=== PATIENT | male | born 1955 | race Caucasian/White ===

== ENCOUNTER 2023-05-26 13:48 | Emergency (ER) | payer MEDICARE, OTHER ==
[2023-05-26 14:05] VITALS: BP 132/76; PULSE 71; RESP 19; TEMP 98.5; O2SAT 97
--- NOTE | 2023-05-26 14:23 | ERPHSYRPT ---
- History of Present Illness Time Seen by Provider: 05/26/23 14:04 Source: patient Exam Limitations: no limitations Patient Subjective Stated Complaint: C/O neck pain. States he has spinal stenosis and sometimes it "flares up." Patient indicates he was moving around a basketball goal at [employer] and thinks he may have strained something. Triage Nursing Assessment: Patient ambulated back to ER. He is alert and oriented. Inability to move neck much noted. Skin tone normal. No SOB. Physician History: 67-year-old male with history of spinal stenosis, with chronic neck and lower back pain presented in the ER with increasing pain in the neck and shoulder area after he pushed something 3 days ago. Patient reports pain radiating to the shoulders without any numbness or weakness but does have peripheral neuropathy which is not any worse than usual. No weakness in lower extremities or numbness in the perineal area/saddle anesthesia. Pain is exacerbated with movements of the neck, has taken some leftover Seibert but no relief. Reports having similar symptoms in the past where neck pain gets exacerbated and need steroid injection. Denies any direct trauma to the neck. No chest pain palpitations or shortness of breath. Allergies/Adverse Reactions: simvastatin [From Zocor] Adverse Reaction (Intermediate, Verified 05/26/23 14:05) Muscle Aches Home Medications: Metformin HCl 500 mg [Glucophage 500 MG] 2 tab PO BID 05/26/23 [History] Pravastatin Sodium 1 tab PO HS 05/26/23 [History] Pregabalin [Lyrica] 1 cap PO BID 05/26/23 [History] Hx Tetanus, Diphtheria Vaccination/Date Given: Yes Hx Influenza Vaccination/Date Given: Yes Hx Pneumococcal Vaccination/Date Given: Yes Immunizations Up to Date: Yes Travel Risk - International Travel Have you traveled outside of the country in past 3 weeks: No - Coronavirus Screening Are you exhibiting any of the following symptoms?: No Close contact with a COVID-19 positive Pt in past 14-21 Days: No - Vaccine Status Have you recieved a Covid-19 vaccination: Yes Vending Machine Technician: Unknown - Vaccination Dates Dates if Unknown: ? - Review of Systems Constitutional: No Symptoms Eyes: No Symptoms Ears, Nose, & Throat: No Symptoms Respiratory: No Symptoms Cardiac: No Symptoms Abdominal/Gastrointestinal: No Symptoms Genitourinary Symptoms: No Symptoms Musculoskeletal: Arthralgias, Back Pain, Neck Pain Skin: No Symptoms Neurological: No Symptoms Psychological: No Symptoms - Past Medical History Pertinent Past Medical History: Yes Neurological History: Peripheral Neuropathy Cardiac History: Hypertension Respiratory History: COPD Endocrine Medical History: Diabetes Type II Musculoskeletal History: No Pertinent History GI Medical History: Other History: Kidney Cancer Psycho-Social History: No Pertinent History Male Reproductive Disorders: No Pertinent History Other Medical History: malignant kidney tumor, fatty liver, compartment syndrome right leg - Past Surgical History Past Surgical History: Yes Neuro Surgical History: No Pertinent History Cardiac: No Pertinent History Respiratory: No Pertinent History Gastrointestinal: No Pertinent History Genitourinary: Kidney Surgery Musculoskeletal: Other Male Surgical History: No Pertinent History Other Surgical History: back surgery, cryo removal of kidney tumor, 3 surgeries for compartment syndrome right leg - Social History Smoking Status: Current every day smoker How long have you smoked: 50 years Exposure to second hand smoke: No Drug Use: none Patient Lives Alone: No - Nursing Vital Signs Nursing Vital Signs: Initial Vital Signs Temperature 98.5 F 05/26/23 13:48 Pulse Rate 71 05/26/23 13:48 Respiratory Rate 19 05/26/23 13:48 Blood Pressure 132/76 05/26/23 13:48 O2 Sat by Pulse Oximetry 97 05/26/23 13:48 Pain Scale Pain Intensity 10 - Physical Exam General Appearance: no apparent distress, alert Eye Exam: PERRL/EOMI Ears, Nose, Throat Exam: normal ENT inspection, TMs normal, pharynx normal, moist mucous membranes Neck Exam: normal inspection, supple, limited range of motion, other (Generaliz ed tenderness) Respiratory Exam: normal breath sounds, lungs clear Cardiovascular Exam: regular rate/rhythm, normal heart sounds Back Exam: normal inspection, normal range of motion Extremity Exam: normal inspection, normal range of motion Neurologic Exam: alert, oriented x 3, pharmacist II-XII nml as tested, nml cerebellar function, nml station & gait, sensation nml, No motor deficits Skin Exam: normal color SpO2 Interpretation: normal SpO2: 97 O2 Delivery: Room Air Ordered Tests: Medication Summary Discontinued Medications Generic Name Dose Route Start Last Admin Trade Name Freq PRN Reason Stop Dose Admin Orphenadrine Citrate 60 mg 05/26/23 14:27 05/26/23 15:15 Orphenadrine Citrate 60 Mg/2 Ml Vial IM 05/26/23 14:28 60 mg STAT ONE Administration Orphenadrine Citrate Confirm 05/26/23 15:02 Orphenadrine Citrate 60 Mg/2 Ml Vial Administered 05/26/23 15:03 Dose 60 mg .ROUTE .STK-MED ONE Oxycodone/Acetaminophen 1 tab 05/26/23 14:14 05/26/23 15:07 Oxycodone Hcl/Apap 5 Mg/325 Mg Tablet PO 05/26/23 14:15 1 tab STAT ONE Administration Oxycodone/Acetaminophen Confirm 05/26/23 15:01 Oxycodone Hcl/Apap 5 Mg/325 Mg Tablet Administered 05/26/23 15:02 Dose 1 tab .ROUTE .STK-MED ONE Triamcinolone Acetonide 60 mg 05/26/23 14:15 05/26/23 15:12 Triamcinolone Acetonide 40 Mg/Ml Ml IM 05/26/23 14:16 60 mg 1XONLY ONE Administration Triamcinolone Acetonide Confirm 05/26/23 15:02 Triamcinolone Acetonide 40 Mg/Ml Ml Administered 05/26/23 15:03 Dose 80 mg .ROUTE .STK-MED ONE - Progress Progress: improved, pain not gone completely, re-examined Progress Note: 05/26/23 15:47 67-year-old is evaluated for worsening neck pain after pushing some heavy objects 3 days ago. Patient has diffuse muscle stiffness and tenderness with reproducibility on movements and palpation. Negative neuro exam in upper and lower extremities. Does not seem meningitis. I have offered him CT cervical spine which patient declined. Patient states "I have done it in the past and do not think it is any useful and had similar symptoms in the past as well". He also states "I have not seen good results of surgery and do not want to pursue for that and there is no point of doing imaging". He is given symptomatic treatment along with a dose of steroid, Percocet and Norflex. Will continue with Percocet and Flexeril to go home and outpatient follow-up recommended. Discussed signs symptoms of worsening needing return to ER which she seems understanding. Stable for discharge. Counseled pt/family regarding: diagnosis, need for follow-up Medical Desision Making - Risk of complications The pt has a mod risk of morbidity or mortality based on: Need for prescription drug management - Departure Departure Disposition: Home Clinical Impression: Cervical strain, acute Condition: Stable Critical Care Time: No Referrals: GRACE COLMENARES MD [Primary Care Provider] - Follow up with PCP 1 day Instructions: Cervical Muscle Strain (DC), Neck Sprain (DC) Additional Instructions: Take pain medication and muscle relaxants as needed. Follow-up with primary c are for reevaluation. Return to ER for excruciating pain, numbness/weakness of extremities or having difficulty movements of neck, intractable nausea vomiting/fever chills etc. Prescriptions: Cyclobenzaprine HCl 10 mg [Flexeril 10 MG] 5 mg PO TID PRN 5 Days #12 tablet PRN Reason: Pain Oxycodone/APAP 5 mg/325 mg [Percocet Tablet 5/325Mg] 1 tab PO Q6H PRN 3 D ays #12 tablet MDD 20 PRN Reason: Pain
[2023-05-26] MEDS ORDERED: PERCOCET TABLET 5/325MG ONE (15:01)
[2023-05-26] MEDS ORDERED: Norflex 60 MG/2 ML ONE (15:02)
[2023-05-26] MEDS ORDERED: Kenalog-40 ONE (15:02)
[2023-05-26] MEDS: PERCOCET TABLET 5/325MG PO ONE (15:07)
[2023-05-26] MEDS: Kenalog-40 IM ONE (15:12)
[2023-05-26] MEDS: Norflex 60 MG/2 ML IM ONE (15:15)
== END 2023-05-26 16:02 | disposition home or self-care (01) ==
LOC: ED 13:48
DX: S16.1XXA Strain of muscle, fascia and tendon at neck level, initial encounter (principal); X50.0XXA Overexertion from strenuous movement or load, initial encounter; Y92.22 Religious institution as the place of occurrence of the external cause; I10 Essential (primary) hypertension; E11.42 Type 2 diabetes mellitus with diabetic polyneuropathy; Z79.84 Long term (current) use of oral hypoglycemic drugs; Z79.891 Long term (current) use of opiate analgesic; Z79.899 Other long term (current) drug therapy; Z72.0 Tobacco use
CPT/HCPCS: 96372; 99283; J2360; J3301; A9270-GY

== ENCOUNTER 2023-08-12 17:17 | Emergency (ER) | payer MEDICARE, OTHER ==
[2023-08-12] MEDS ORDERED: EPINEPHRINE ABBOJECT 1 MG/10 ML IV ONE (17:18)
[2023-08-12] MEDS ORDERED: Magnesium Sulfate 1 GM/2 ML VIAL IV ONE (17:18)
[2023-08-12] MEDS ORDERED: SODIUM BICARBONATE 50 MEQ/50 ML ABBOJECT IV ONE ×2 (17:18→17:32)
[2023-08-12 17:27] LABS: Hematocrit 41.2 % (42-50); Hemoglobin 13.5 g/dL (12.5-18.0); Mean Cell Volume 108.7 fL (78-100); Mean Corpuscular Hemoglobin 35.6 pg (26-32); Mean Corpuscular Hgb Concent. 32.8 g/dL (32-36); Mean Platelet Volume 10.3 fL (7.5-11.0); Platelet Count 184 x10^3/uL (150-450); Red Blood Count 3.79 x10^6/uL (4.1-5.6); White Blood Count 9.6 x10^3/uL (4.0-10.5)
[2023-08-12] MEDS ORDERED: Sodium Chloride 0.9% 1000 ML 1,000 ML ONE (17:29)
[2023-08-12] MEDS ORDERED: Magnesium Sulfate 1 GM/2 ML VIAL ONE (17:32)
[2023-08-12 17:41] LABS: VBG BASE EXCESS -10.4 (-2.0-2.0); VBG HCO3- 21.9 meq/L (22-28); VBG O2 SATURATION 51.6 (95-100); VBG POTASSIUM 3.2 (3.5-5.1)
[2023-08-12 17:41] LABS: ALBUMIN 4.1 g/dL (3.5-5.0); ANION GAP 21.2 MEQ/L (5-15); BILIRUBIN,TOTAL 0.7 mg/dL (0.2-1.3); Calcium 8.7 mg/dL (8.4-10.2); Creatinine 1 1.15 mg/dL (0.66-1.25); EST GLOMERULAR FILTRATION RATE 69.3 ML/MIN; Potassium 3.5 mmol/L (3.5-5.1); Total Protein 7.2 g/dL (6.3-8.2)
[2023-08-12 17:42] LABS: VBG pH 7.04 (7.32-7.42)
[2023-08-12 17:43] LABS: VBG CARBOXYHEMOGLOBIN 8.1 % T HGB (0.0-6.9)
--- NOTE | 2023-08-12 18:04 | ERPHSYRPT ---
- History of Present Illness Time Seen by Provider: 08/12/23 17:17 Source: EMS, old records, other (Family came later and provided additional, independent history) Exam Limitations: clinical condition Physician History: This is an obese 68-year-old white male patient who is brought into the emergency department by paramedics after the patient's mother witnessed fall and unresponsiveness at approximately 1638 prior to arrival. Patient's mother was not able to figure out how to call for an ambulance and called her daughter (the patient's sister). The patient's sister started CPR and mentioned there was no pulse and called 911. The paramedics arrived soon after and CPR was started. Again, there was no pulse present. Intravenous line was placed. Patient recei beronica 3 rounds of epinephrine and a dose of amiodarone intravenously. They had a brief return of the pulse just prior to arrival. By the time the patient arrived to our facility at 1717, there was no pulse, the patient was intubated by the paramedics using an intermediate airway. The pupils were fixed and dilated. There was no spontaneous heart tones or spontaneous breath sounds. We continued CPR with the Kendall device providing chest compressions. Patient has a history of diabetes and hyperlipidemia. Respiratory therapy changed out from the intermediate airway to an endotracheal tube. Timing/Duration: today Activities at Onset: none (Unresponsive) Modifying Factors: Improves With: nothing Nitro Today/Relief: no nitro taken today Aspirin Treatment Today: no aspirin today Associated Symptoms: denies symptoms (Patient unresponsive) Allergies/Adverse Reactions: simvastatin [From Zocor] Adverse Reaction (Intermediate, Verified 08/12/23 17:53) Muscle Aches Home Medications: Metformin HCl 500 mg [Glucophage 500 MG] 2 tab PO BID 05/26/23 [History] Pravastatin Sodium 1 tab PO HS 05/26/23 [History] Pregabalin [Lyrica] 1 cap PO BID 05/26/23 [History] Hx Tetanus, Diphtheria Vaccination/Date Given: Yes Hx Influenza Vaccination/Date Given: Yes Hx Pneumococcal Vaccination/Date Given: Yes Travel Risk - International Travel Have you traveled outside of the country in past 3 weeks: No - Emerging Infectious Disease Are you exhibiting symptoms associated with any current EIDs: No - Review of Systems Constitutional: No Symptoms, Other (Patient unresponsive) Eyes: No Symptoms Ears, Nose, & Throat: No Symptoms Respiratory: No Symptoms Cardiac: No Symptoms Abdominal/Gastrointestinal: No Symptoms Genitourinary Symptoms: No Symptoms Musculoskeletal: No Symptoms Skin: No Symptoms Neurological: No Symptoms Psychological: No Symptoms Endocrine: No Symptoms Hematologic/Lymphatic: No Symptoms Immunological/Allergic: No Symptoms All Other Systems: Reviewed and Negative - Past Medical History Pertinent Past Medical History: Yes Neurological History: Peripheral Neuropathy Cardiac History: Hypertension Respiratory History: COPD Endocrine Medical History: Diabetes Type II Musculoskeletal History: No Pertinent History GI Medical History: Other History: Kidney Cancer Psycho-Social History: No Pertinent History Male Reproductive Disorders: No Pertinent History Other Medical History: malignant kidney tumor, fatty liver, compartment syndrome right leg - Past Surgical History Past Surgical History: Yes Neuro Surgical History: No Pertinent History Cardiac: No Pertinent History Respiratory: No Pertinent History Gastrointestinal: No Pertinent History Genitourinary: Kidney Surgery Musculoskeletal: Other Male Surgical History: No Pertinent History Other Surgical History: back surgery, cryo removal of kidney tumor, 3 surgeries for compartment syndrome right leg - Social History Smoking Status: Current every day smoker How long have you smoked: 50 years Exposure to second hand smoke: No Drug Use: none Patient Lives Alone: No - Physical Exam General Appearance: other (Patient unresponsive) Eye Exam: other (Bilateral pupils dilated and fixed) Ears, Nose, Throat Exam: other (Intermediate airway in place) Neck Exam: normal inspection Respiratory Exam: other (No spontaneous airway) Cardiovascular Exam: other (No palpable pulse and no audible heart tones) Gastrointestinal/Abdomen Exam: soft Rectal Exam: not done Back Exam: normal inspection Extremity Exam: other Neurologic Exam: other (Patient unresponsive) Skin Exam: pale, other Lymphatic Exam: No adenopathy (Who) SpO2 Interpretation: hypoxic (Intermediate airway in place) - Course Nursing assessment & vital signs reviewed: Yes EKG Interpreted by Me: RATE (69), Other (Junctional rhythm with PVC. Computer read out anterior infarct acute (proximal LAD)) Ordered Tests: Active Orders 24 hr Category Date Time Status Catheter-[place] Espinoza STAT Care 08/12/23 17:24 Active EKG-ER Only STAT Care 08/12/23 17:24 Active CBC W DIFF Stat Lab 08/12/23 17:20 Completed CMP Stat Lab 08/12/23 17:20 Completed MAGNESIUM Stat Lab 08/12/23 17:20 Completed Manual Differential NC Stat Lab 08/12/23 17:20 Completed TROPONIN Q4H Lab 08/12/23 17:20 Received TROPONIN Q4H Lab 08/12/23 21:30 Ordered VBG [VENOUS BLOOD GAS] Stat Lab 08/12/23 17:40 Completed Medication Summary Discontinued Medications Generic Name Dose Route Start Last Admin Trade Name Carlyn PRN Reason Stop Dose Admin Sodium Chloride Confirm 08/12/23 17:29 Sodium Chloride 0.9% 1000 Ml Administered 08/12/23 17:30 Dose 1,000 mls @ ud .ROUTE .STK-MED ONE Magnesium Sulfate Confirm 08/12/23 17:32 Magnesium Sulfate Injection Administered 08/12/23 17:33 Dose 2 gm .ROUTE .STK-MED ONE Sodium Bicarbonate Confirm 08/12/23 17:32 Sodium Bicarbonate 1 Meq/Ml 50ml Syringe Administered 08/12/23 17:33 Dose 50 meq IV .STK-MED ONE Lab/Rad Data: Laboratory Result Diagrams 08/12/23 17:20 08/12/23 17:20 Laboratory Results 08/12/23 08/12/23 08/12/23 Range/Units 17:40 17:20 17:20 WBC 9.6 (4.0-10.5) x10^3/uL RBC 3.79 L (4.1-5.6) x10^6/uL Hgb 13.5 (12.5-18.0) g/dL Hct 41.2 L (42-50) % MCV 108.7 H (78-100) fL MCH 35.6 H (26-32) pg MCHC 32.8 (32-36) g/dL RDW 15.0 H (11.5-14.0) % Plt Count 184 (150-450) x10^3/uL MPV 10.3 (7.5-11.0) fL pO2/FiO2 Ratio 100.0 % VBG pH 7.04 L* (7.32-7.42) VBG pCO2 at Pat Temp 81 H* (42-55) mm/Hg VBG pO2 at Pat Temp 39 (25-40) mm/Hg VBG HCO3 21.9 L (22-28) meq/L VBG O2 Sat (Sam) 51.6 L (95-100) VBG Base Excess -10.4 L (-2.0-2.0) VBG Hemoglobin 14.0 VBG Carboxyhemoglobin 8.1 H* (0.0-6.9) % T HGB POC Potassium 3.2 L (3.5-5.1) Sodium 139 (135-145) mmol/L Potassium 3.5 (3.5-5.1) mmol/L Chloride 102 (98-107) mmol/L Carbon Dioxide 18 L (22-30) mmol/L Anion Gap 21.2 H (5-15) MEQ/L BUN 14 (9-20) mg/dL Creatinine 1.15 (0.66-1.25) mg/dL Estimated GFR 69.3 ML/MIN Glucose 274 H (74-106) mg/dL Calcium 8.7 (8.4-10.2) mg/dL Magnesium 2.0 (1.6-2.3) mg/dL Total Bilirubin 0.70 (0.2-1.3) mg/dL AST 39 (17-59) U/L ALT 28 (0-50) U/L Alkaline Phosphatase 78 (38-126) U/L Serum Total Protein 7.2 (6.3-8.2) g/dL Albumin 4.1 (3.5-5.0) g/dL - Progress Progress: unchanged Progress Note: 08/12/23 18:08 This patient presented in cardiac arrest with no pulse upon entrance into the emergency department. CPR was started. The intermediate airway was removed and respiratory therapy placed a 7.5 ET tube without difficulty. Peripheral IV lines were placed. Espinoza catheter was placed. Patient received several doses of epinephrine intravenously every 3 to 5 minutes. We also provide the patient with 2 A of bicarb and a gram of magnesium. This patient's medical complexity was severe and critical. We did send off blood work to include CBC, CMP, magnesium and troponin level. We did several twelve-lead EKGs. The second twelve-lead EKG performed on 08/12/2023 at 1734 shows atrial fibrillation with a heart rate of 73 and persistent PVCs and acute lateral infarct as the computer readout interpretation. I would agree that this patient is having the acute myocardial infarction. The third twelve-lead EKG was performed on 08/12/2023 at 1748. This shows a heart rate of 36 bpm. Is in junctional rhythm. There is incomplete left bundle branch block. There is evidence of ischemia anterior leads and now ST elevation in inferior leads. I agree with the twelve-lead EKG computer interpretation. After an hour and 10 minutes of CPR patient is not responding to the orotracheal intubation, Kendall device chest compressions and medication. I had a long discussion with the patient's family. They were informed that each time we stopped CPR briefly the patient's heart rate would drop suddenly down to the 20s and 30s beats per minute range. Patient has no spontaneous heart tones, he has no spontaneous breath sounds, he has no palpable pulse. They have opted to stop the CPR. Blood Culture(s) Obtained: No Antibiotics given: No Counseled pt/family regarding: diagnosis Medical Desision Making - Independent Historian Additional History obtained from: Family, Exploration Manager/EMT - Diagnostic Testing Diagnostic test were ordered, analyzed, and reviewed by me: Yes - Risk of complications The pt has a high risk of morbidity or mortality based on: Decision not to resucitate (Family has made the decision to stop CPR at 1549) - Departure Departure Disposition: Clinical Impression: Cardiac arrest, Acute myocardial infarction Condition: Critical Care Time: Yes Critical Care Time(excluding separately billable procedures): Critical 30-74 mins (35) Referrals: GRACE COLMENARES MD [Primary Care Provider] - Follow up/PCP as directed
[2023-08-12 18:11] LABS: BAND 7 % (0.0-2.0); Basophil 2 % (0.0-1.0); Eosinophil 1 % (0.00-3.0); Lymphocytes 43 % (24-44); Monocyte 13 % (0.0-12.0); Myelocyte 1 %; Neutrophils 33 % (36.-66.); Total Cells Counted 100
[2023-08-12 18:13] LABS: ANISOCYTOSIS 2+; Platelet Estimate NORMAL (NORMAL); Polychromasia 1+
[2023-08-12 18:14] LABS: Macrocytosis 1+
[2023-08-12 18:36] VITALS: TEMP 97.9
== END 2023-08-12 23:18 | disposition expired ==
LOC: ED 17:17
DX: I21.9 Acute myocardial infarction, unspecified (principal); I46.2 Cardiac arrest due to underlying cardiac condition
CPT/HCPCS: 31500; 36415; 51702; 80053; 82805; 83735; 84484; 85025; 93005; 96374; 96375; 96376; 99284; 99291; J0171; J3475